=== PATIENT | female | born 1955 | race Caucasian/White ===

== ENCOUNTER 2019-06-06 14:34 | Inpatient (IN) ==
[2019-06-06 15:52] LABS: BASO# 0.01 X1000 (0.0-0.2); BASO% 0.1 % (0.0-0.8); HEMATOCRIT 40.6 % (37.0-47.0); HEMOGLOBIN 13.6 g/dL (12.0-16.0); LYMPH# 0.96 X1000 (1.2-3.4); LYMPH% 9.5 % (20.5-51.1); MCHC 33.5 g/dL (33-37); MCV 89.4 FL (81-99); MONO# 0.57 X1000 (0.11-0.59); MONO% 5.6 % (1.7-9.3); MPV 9.6 FL (7.4-10.4); NEUT# 8.56 X1000 (1.4-6.5); NEUT% 84.8 % (42.2-75.2); PLT 223 X1000 (130-400); RBC 4.54 XMIL (4.2-5.4); RDW 12.7 % (11.5-14.5)
--- NOTE | 2019-06-06 16:12 | Diag Imaging Result Doc PS360 ---
EXAM: CT ABDOMEN/PELVIS W/O CONTRAST 06/06/2019 HISTORY: abd pain TECHNIQUE: This exam was performed using automated exposure control, adjustment of mA or kV according to patient size, and/or use of iterative reconstruction technique. COMMENT: There is a calcified granuloma in the right middle lobe. There are some linear opacities present in the left lower lobe. There are no previous studies and this may be due to atelectasis or fibrosis. There is a small hiatal hernia. The stomach is not distended. The spleen is not enlarged. There are some prominent gastrohepatic and periportal nodes. There is left renal atrophy. The right kidney is without evidence of stones or hydronephrosis. There are no definite gallstones. There is no evidence of bowel obstruction. The appendix is markedly distended with periappendiceal fluid and induration in the fat. There is no discrete abscess. There is a fat-containing right inguinal hernia. The urinary bladder is not distended. There is free fluid in the cul-de-sac. There is minimal diverticulosis in the sigmoid colon. There are postsurgical changes in the lumbar spine. No acute bony abnormalities are present. IMPRESSION: Acute appendicitis with possible rupture. Electronically signed by Aidan Wayne 06/06/2019 4:09 PM
[2019-06-06 16:13] LABS: ALB/GLOB RATIO 1.2; ALBUMIN 4.2 g/dL (3.5-5.0); CALCIUM 9.8 mg/dL (8.8-10.2); POTASSIUM 3.5 mmol/L (3.5-5.1); TOTAL BILIRUBIN 0.43 mg/dL (0.20-1.00); TOTAL PROTEIN 7.6 g/dL (6.3-8.3)
[2019-06-06] MEDS ORDERED: ZOSYN 3.375 GM in NS 50 ML IV ONE (16:17)
--- NOTE | 2019-06-06 16:17 | PROVIDER DOCUMENTATION ---
This chart was entered by Maria De Jesus Matos Scribe, acting as scribe for Judy Clancy MD. HPI-Abdominal Pain/GI Problem - General Chief Complaint: Abdominal Pain Stated Complaint: ABD PAIN Time Seen by Provider: 06/06/19 15:09 Source: patient Allergies/Adverse Reactions: Patient Allergies Allergy/AdvReac Type Severity Reaction Status Date / Time Penicillins Allergy Mild RASH Verified 06/06/19 16:43 hydromorphone [From Dilaudid] AdvReac ANAPHYLAXIS Verified 06/06/19 16:45 Home Medications: Home Medication List Medication Instructions Recorded Confirmed Last Taken Type Bisoprolol/Hydrochlorothiazide 1 ea PO DIRECTED 06/06/19 06/06/19 Unknown History [Bisoprolol-Hctz 5-6.25 mg Tab] Cyclobenzaprine [Flexeril] 10 mg PO TID PRN 06/06/19 06/06/19 Unknown History Duloxetine HCl 60 mg PO DAILY 06/06/19 06/06/19 Unknown History Gabapentin [Gralise] 300 mg PO DIRECTED 06/06/19 06/06/19 Unknown History Hydrocodone/Acetaminophen 7.5 mg PO Q6-8H PRN PRN 06/06/19 06/06/19 Unknown History [Hydrocodone-Acetamin 7.5-325] Losartan Potassium 100 mg PO DAILY 06/06/19 06/06/19 Unknown History Metformin HCl [Metformin HCl ER] 1,000 mg PO ORDERED 06/06/19 06/06/19 Unknown History Omeprazole 40 mg PO DAILY 06/06/19 06/06/19 Unknown History Pregabalin [Lyrica] 100 mg PO DAILY 06/06/19 06/06/19 Unknown History - History of Present Illness-ABD Nature of Presenting Problems: 63 yowf c/o rlq pain starting last night at around midnight. pt woke up diaphoretic and felt feverish. pt also c/o n/v and hesitency. pt has hx of DM. sx hysterectomy. no hematuria or diarrhea. pt followed by Dr. Lucero. Abdominal Pain Onset Location: reports: RLQ Pain Radiation: reports: no radiation Severity in ED: reports: mild Onset/Duration: reports: last night Timing: reports: still present Activities at Onset: reports: sleep Review of Systems - Adult - REVIEW OF SYSTEMS - ADULT Constitutional: reports: see HPI, fever (felt feverish), night sweats. denies: chills, fatique Eyes: reports: no symptoms reported Ears, Nose, Mouth & Throat: reports: no symptoms reported Cardiovascular: reports: no symptoms reported Respiratory: reports: no symptoms reported Gastrointestinal: reports: see HPI, abdominal pain, nausea, vomiting. denies: hematemesis, diarrhea, frequent heartburn Genitourinary: reports: see HPI, hesitency. denies: dysuria, discharge, frequency Musculoskeletal: reports: no symptoms reported Integumentary: reports: no symptoms reported Neurological: reports: no symptoms reported Psychiatric: reports: no symptoms reported Endocrine: reports: no symptoms reported Hematologic/Lymphatic: reports: no symptoms reported Allergic/Immunologic: reports: no symptoms reported All Other Systems: Reviewed and Negative Past History - Adult - PAST MEDICAL HISTORY-ADULT Review of Records: reports: Old Records Reviewed, Nursing Assessment Review, Medications Reviewed, Social history reviewed & non-contributory. Major Childhood Illnesses: reports: denies history Cardiovascular: reports: HTN Respiratory: reports: denies history Gastrointestinal: reports: denies history Obstetrical/Gynecological: reports: denies history Genitourinary: reports: denies history Musculoskeletal: reports: denies history Neurological: reports: denies history Endocrine/Immune: reports: Diabetes Diabetes Type: Type 2 Other Conditions: reports: denies history - PRIOR SURGERIES/PROCEDURES Surgical/Procedure History: reports: hysterectomy, tonsillectomy - IMMUNIZATION STATUS Childhood Immunizations: See Nurse Assessment Flu Vaccine: See Nurse Assessment - FAMILY HISTORY Family History: reviewed, not pertinent - SOCIAL HISTORY Smoking: cigarettes, less than 1 pack/day Provider spent 3-5 mins advising pt. on dangers of tobacco.: Discussed manners to quit use, and f/u contacts for add'l counseling. Substance Use: alcohol Alcohol Use Frequency: occasionally Physical Exam-General - PHYSICAL EXAM-ADULT Initial Vital Signs Reviewed: Yes - CONSTITUTIONAL General Appearance: alert, mild distress. negative: cachetic, lethargic, combative - EYES Eyes: PERRL/EOMI, pink conjunctivae - HEAD, EARS, NOSE, MOUTH & THROAT HENMT: normocephalic/atraumatic, moist mucous membranes, normal ENT inspection - NECK Neck: non-tender, full range of motion, supple, normal inspection - RESPIRATORY Respiratory: chest non-tender, lungs clear, normal breath sounds - CARDIOVASCULAR Cardiovascular: normal peripheral pulses, regular rate, rhythm - GASTROINTESTINAL (ABDOMEN) Abdominal Exam: normal bowel sounds, no organomegaly, no pulsatile mass, distended (slight), tenderness (general diffuse to palp). negative: non tender, soft, guarding, rigid, rebound - LYMPHATIC Lymphatic: no adenopathy - MUSCULOSKELETAL Back Exam: normal inspection, no CVA tenderness, no vertebral tenderness Extremity: normal range of motion, non-tender, normal inspection Peripheral Pulses: radial (R): 2+, radial (L): 2+ - SKIN Integumentary: normal color, normal turgor, warm/dry - NEUROLOGIC Neurologic: grossly normal, no motor/sensory deficits - PSYCHIATRIC Psych/Mental Status: normal mood/affect, normal thought content, normal thought process, oriented x 3 Progress - PLAN OF CARE/RESULTS Progress/Plan/Lab Results: Vital Signs - 8 hr 06/06/19 14:38 Temperature 98.7 F Pulse Rate 86 Respiratory Rate 18 Blood Pressure 160/83 O2 Sat by Pulse Oximetry 97 Result Diagrams: 06/06/19 15:10 06/06/19 15:10 - CT/MRI 1 CT Study: Abdomen, Pelvis Impression: Abnormal, See EMR Report (EXAM: CT ABDOMEN/PELVIS W/O CONTRAST 06/06/2019 HISTORY: abd pain TECHNIQUE: This exam was performed using automated exposure control, adjustment of mA or kV according to patient size, and/or use of iterative reconstruction technique. COMMENT: There is a calcified granuloma in the right middle lobe. There are some linear opacities present in the left lower lobe. There are no previous studies and this may be due to atelectasis or fibrosis. There is a small hiatal hernia. The stomach is not distended. The spleen is not enlarged. There are some prominent gastrohepatic and periportal nodes. There is left renal atrophy. The right kidney is without evidence of stones or hydronephrosis. There are no definite gallstones. There is no evidence of bowel obstruction. The appendix is markedly distended with periappendiceal fluid and induration in the fat. There is no discrete abscess. There is a fat-containing right inguinal hernia. The urinary bladder is not distended. There is free fluid in the cul-de-sac. There is minimal diverticulosis in the sigmoid colon. There are postsurgical changes in the lumbar spine. No acute bony abnormalities are present. IMPRESSION: Acute appendicitis with possible rupture. Electronically signed by Aidan Wayne 06/06/2019 4:09 PM) Comparison with other Films: no prior study - CONSULTS/PCP/HOSPITALIST Notification #1 *Consult/PCP/Hospitalist*: Dr. Spears Time Discussed: 16:30 Consult Disposition: Will see in ED Departure - Departure Date of Disposition Decision: 06/06/19 Time of Disposition Decision: 16:20 DIAGNOSIS: Appendicitis Disposition: ADMITTED INPATIENT 09 Certified Medical Emergency: Emergent Condition: Good - Critical Care Note This patient required my direct & personal management of CC.: No Attestation - Physician/ LEIGH Attestation Patient care was provided by Advanced Practice Provider:: No The physician spent face to face time with patient:: Yes Advanced Practice Provider documentation review:: Supervising physician onsite and consulted in the evaluation and care of this patient. The physician did have a face to face encounter with the patient. This chart was documented by the indicated scribe, (Maria De Jesus Matos Scribe) and accurately reflects the services I performed and decisions made by me, Judy Clancy MD, as attested by the provider's signature.
[2019-06-06] MEDS ORDERED: NS 1,000 ML IV ONE (16:20)
[2019-06-06 16:36] LABS: AMYLASE 33 U/L (20-200); LIPASE 14 U/L (13-60)
[2019-06-06 17:12] LABS: URINE SOURCE CLEAN CATCH
[2019-06-06] MEDS ORDERED: SENSORCAINE 0.5%-EPI 1:200,000 ONE (17:21)
[2019-06-06] MEDS ORDERED: LR 1,000 ML ONE ×2 (17:21→20:03)
[2019-06-06 17:26] LABS: BILIRUBIN URINE NEGATIVE (NEGATIVE); BLOOD URINE NEGATIVE (NEGATIVE); COLOR YELLOW; GLUCOSE URINE TRACE mg/dL (NEGATIVE); KETONE URINE NEGATIVE (NEGATIVE); LEUKOCYTES URINE NEGATIVE (NEGATIVE); NITRITE URINE NEGATIVE (NEGATIVE); PH URINE 7.5; PROTEIN URINE 70 mg/dL (NEGATIVE); SP GRAVITY URINE 1.027; TURBIDITY URINE CLEAR (CLEAR); UROBILINOGEN URINE NORMAL (NORMAL)
[2019-06-06 17:27] LABS: UR EPITHELIAL CELLS <10 /HPF (<10); URINE BACTERIA NEGATIVE /HPF; URINE RBC <10 /HPF (<10); URINE WBC <10 /HPF (<10)
[2019-06-06] MEDS ORDERED: XYLOCAINE-MPF 2% ONE (17:30)
[2019-06-06] MEDS ORDERED: DIPRIVAN 1% ONE (17:30)
[2019-06-06] MEDS ORDERED: QUELICIN (DOSE) ONE (17:31)
[2019-06-06] MEDS ORDERED: ROBINUL ONE ×2 (17:32→17:45)
[2019-06-06] MEDS ORDERED: NORCURON ONE (17:44)
[2019-06-06] MEDS ORDERED: NEOSTIGMINE ONE (17:45)
[2019-06-06] MEDS ORDERED: FENTANYL ONE (17:58)
[2019-06-06] MEDS: MORPHINE ONE ×3 (19:31→19:45)
[2019-06-06] MEDS ORDERED: OFIRMEV 1000 MG/ISOTONIC SOLN 1,000 MG/100 ML BOTTLE ONE (19:44)
[2019-06-06] MEDS ORDERED: NORCO-5 PO PRN (21:31)
[2019-06-06] MEDS ORDERED: ZOFRAN IV PRN (21:33)
[2019-06-07] MEDS: MORPHINE IV PRN ×5 (01:46→18:55)
[2019-06-07] MEDS: MEFOXIN 2 GM/NS 2 GM/50 ML IVPB IV SCH ×4 (01:47→20:50)
[2019-06-07] MEDS: LR 1,000 ML IV SCH ×5 (01:56→18:19)
[2019-06-07] MEDS ORDERED: FLEXERIL PO PRN (05:19)
--- NOTE | 2019-06-07 05:21 | OPERATIVE NOTE ---
PROCEDURE DATE: 06/06/2019 PREOPERATIVE DIAGNOSIS: Appendicitis. POSTOPERATIVE DIAGNOSIS: Perforated appendicitis. PROCEDURE: Laparoscopic converted to open appendectomy. SURGEON: Remy Spears MD. COMPUTER SOFTWARE ENGINEER: None. ANESTHESIA: General endotracheal. FINDINGS: Perforation at its base with significant amount of adhesions intra-abdominally. COMPLICATIONS: None at time of this dictation. ESTIMATED BLOOD LOSS: 50 mL. SPECIMEN REMOVED: Appendix. DRAINS: 10-Malay flat drain. BRIEF HISTORY: A 63-year-old female presenting with a day history of right lower quadrant pain. She had a CT scan that showed possible appendicitis with possible perforation. It was felt she would benefit from appendectomy. The risks, benefits, and alternatives of the procedure were discussed. All questions answered. DESCRIPTION OF PROCEDURE: After informed consent was obtained, patient brought to the operative theatre, transferred to the operating table, and placed in the supine position. General endotracheal anesthesia was then performed without complication. A formal time-out was then performed confirming patient, date, and procedure. All were in agreement. At that time, attention was given to the abdomen. We made an infraumbilical incision with a 15 blade, and then using Optiview technique we inserted a 12 mm trocar and connected insufflation. Pneumoperitoneum was achieved. We found a significant amount of adhesions in the right lower quadrant. I could not even see the cecum or the terminal ileum or the appendix. I placed another trocar in the right upper quadrant to try to view better, but still could not see. We tried to bluntly dissect into the area laparoscopically. I could not see anything. I could not see anything well enough to even leave a drain to washout. Given this and the dense amount of adhesions in the inflammation, I elected to convert to an open. We made a standard McBurney's incision two thirds between the umbilicus and the anterior superior iliac spine. We carried it all way down to the muscle. We the rectus muscle and did not transect it after we entered the anterior fascia. We entered the peritoneum. We encountered purulence which we irrigated out. There was dense adhesions of the omentum covering in this area. We had to do blunt dissection to kind of free up the appendix in the cecum. Once we had done this, we were able to free up the cecum enough to visualize the appendix. It was perforated at the base. I was able to identify the terminal ileum, the base of the appendix, and the cecum. We used a TEA stapler with a 45 mm thick load to come across the base of the appendix with good results. We passed it off to pathology. We then over sewed the staple line with interrupted 3-0 silk in a Lembert fashion to imbricate the staple line. We irrigated out the abdomen. Before closing the peritoneum, we placed a drain from just inferior to the incision. We closed the peritoneum, then closed the anterior fascia. We then irrigated out the wound, closed the right lower quadrant incision with danni. We then closed the fascial defect of the infraumbilical incision with 0 Vicryl on a stitch. We then stapled the remaining incisions. The patient tolerated the procedure well. She will be transferred to the floor to monitor postoperatively. cc: Remy Spears MD
[2019-06-07] MEDS: HEPARIN SUBQ SCH ×3 (06:14→20:51)
[2019-06-07] MEDS: PRILOSEC PO SCH (06:38)
[2019-06-07] MEDS: COZAAR PO SCH (08:29)
[2019-06-07] MEDS: CYMBALTA PO SCH (08:29)
[2019-06-07] MEDS: LYRICA PO SCH (08:29)
[2019-06-07] MEDS: NORCO-7.5 PO PRN ×3 (08:29→20:49)
[2019-06-07] MEDS: PERIDEX MT SCH ×2 (08:30→20:51)
--- NOTE | 2019-06-07 09:26 | GENERAL SURGERY PROGRESS NOTE ---
DATE: 06/07/2019 SUBJECTIVE: Patient seems to be doing okay. She is having some soreness, but this is a different type of pain. OBJECTIVE: Vital Signs: Patient is currently afebrile. Her vital signs are stable. General exam: No acute distress. Cardiovascular: Regular rate and rhythm. Lungs: Grossly clear. Abdomen: Soft, appropriately tender. LIZZ drain with minimal serosanguineous output. ASSESSMENT AND PLAN: This is a 63-year-old female currently postoperative day #1 from open appendectomy. Postoperative state. At this time, we will continue current treatment and keep her on clear liquids, see how she does. She has not spiked a fever. May want to observe her with IV antibiotics for another day. cc: Remy Spears MD
[2019-06-08] MEDS ORDERED: MEFOXIN 2 GM/D5W 2 GM/50 ML IVPB IV SCH (02:00)
[2019-06-08] MEDS: LR 1,000 ML IV SCH ×3 (02:42→16:36)
[2019-06-08] MEDS: NORCO-7.5 PO PRN ×3 (02:43→17:41)
[2019-06-08] MEDS: GRALISE PO SCH ×2 (06:08→21:01)
[2019-06-08] MEDS: MEFOXIN 2 GM/NS 2 GM/50 ML IVPB IV SCH (06:08)
[2019-06-08] MEDS: GLUCOPHAGE XR PO SCH ×2 (06:08→21:01)
[2019-06-08] MEDS: PRILOSEC PO SCH (06:31)
[2019-06-08] MEDS: HEPARIN SUBQ SCH ×3 (06:31→21:01)
[2019-06-08] MEDS: COZAAR PO SCH (09:59)
[2019-06-08] MEDS: LYRICA PO SCH (10:00)
[2019-06-08] MEDS: CYMBALTA PO SCH (10:00)
[2019-06-08] MEDS: PERIDEX MT SCH ×2 (10:00→21:01)
[2019-06-08] MEDS: LEVAQUIN PO SCH (10:25)
--- NOTE | 2019-06-08 11:23 | GENERAL SURGERY PROGRESS NOTE ---
DATE: 06/08/2019 SUBJECTIVE: Patient seems to be doing okay. She has not had major issues. She tolerated her liquid diet. OBJECTIVE: Vital Signs: Patient is currently afebrile. Her vital signs are stable. She has a low-grade tachycardia. General: No acute distress. Cardiovascular: Regular rate and rhythm but some mild tachycardia. Lungs: Grossly clear. Abdomen: Soft, appropriately tender. LIZZ drain with minimal serosanguineous output. ASSESSMENT AND PLAN: A 63-year-old female, currently postoperative day number 2 from open appendectomy. Postoperative state. At this time, she seems to be doing relatively well. We will advance to a regular diet, change her to oral antibiotics. If she does okay, we will plan on potential discharge today. cc: Remy Spears MD
[2019-06-08] MEDS: FLAGYL PO SCH ×2 (13:37→21:01)
[2019-06-09] MEDS: PRILOSEC PO SCH (06:33)
[2019-06-09] MEDS: FLAGYL PO SCH (06:33)
[2019-06-09] MEDS: HEPARIN SUBQ SCH (06:34)
[2019-06-09 07:19] VITALS: BP 159/64
[2019-06-09] MEDS: PERIDEX MT SCH (09:45)
[2019-06-09] MEDS: LYRICA PO SCH (09:45)
[2019-06-09] MEDS: CYMBALTA PO SCH (09:46)
[2019-06-09] MEDS: COZAAR PO SCH (09:46)
[2019-06-09] MEDS: LEVAQUIN PO SCH (09:46)
[2019-06-09] MEDS: NORCO-7.5 PO PRN (09:46)
--- NOTE | 2019-06-09 14:33 | GENERAL SURGERY PROGRESS NOTE ---
DATE: 06/09/2019 SUBJECTIVE: She feels well. She is having bowel function. No fevers. Low-grade tachycardia has been stable for her. Abdomen is soft. Incisions are intact. She is having bowel function. LIZZ drain serosanguineous. ASSESSMENT AND PLAN: A 64-year-old female status post open appendectomy for perforated appendicitis. She is afebrile. Her abdominal exam is benign. Her drain is clear. Will transition to oral antibiotics and allow her to go home, seeing Dr. Spears this week for drain removal. Discussed signs and symptoms of abscess. She will call if any of these redevelop. cc: MD Remy Nielsen MD
--- NOTE | 2019-06-12 08:45 | DISCHARGE SUMMARY ---
ADMISSION DATE: 06/06/2019 DISCHARGE DATE: 06/11/2019 ADMITTING DIAGNOSIS: Appendicitis. DISCHARGE DIAGNOSIS: Status post open appendectomy. ADMITTING PHYSICIAN: Remy Spears MD CONSULTATIONS: None. PROCEDURES: On 06/06/2019, patient underwent open appendectomy. BRIEF HISTORY AND COURSE OF STAY: This is a 61-year-old female presenting with abdominal pain. She was found to have a perforated appendicitis. She was taken to the operating room the day of admission, underwent a laparoscopic converted to open appendectomy. She tolerated it well. Her postoperative course was not complicated. We got to the point where she was able to tolerate p.o., was afebrile, did not have any leukocytosis, felt that she would be safe to be discharged home. This was arranged on postoperative day #3. Again on day of discharge she was up and ambulating tolerating p.o., not having fever. All arrangements were made. She did have a LIZZ drain still in place. DISCHARGE CONDITION: Stable. DISPOSITION: Home. DISCHARGE MEDICATIONS: Pain medicine and p.o. antibiotics. FOLLOWUP: Patient will follow up with Dr. Spears. cc: Remy Spears MD
== END 2019-06-09 10:25 | disposition home or self-care (01) | DRG 340 ==
LOC: ED 14:34 → 4N 14:34 → OBSVTOIN 17:39
PROVIDERS: ADMIT Surgery; ATTEND Surgery